=== PATIENT | male | born 1990 | race Caucasian/White ===

== ENCOUNTER 2019-10-19 10:30 | Emergency (ER) | payer SELFPAY ==
[~2019-10-19] VITALS: Ht 177.8 cm; Wt 68.0 kg
[~2019-10-19 10:30] MED LIST: CLARITIN10 MG PO; MEDROL DOSEPAK4 MG PO
[2019-10-19 10:40] VITALS: BP 138/85
[2019-10-19] MEDS ORDERED: PREDNISONE20 M1 PO (10:52)
== END 2019-10-19 11:10 | disposition home or self-care (01) ==
LOC: ED 10:30
DX: L25.9 Unspecified contact dermatitis, unspecified cause (principal); Z87.891 Personal history of nicotine dependence

== ENCOUNTER → 2020-04-09 | Outpatient (CLI) | payer SELFPAY ==
[~2020-04-09] MED LIST changes: +PREDNISONE20 M1 PO
== END | disposition home or self-care (01) ==
LOC: COVID19 02:35
PROVIDERS: ATTEND Internal Medicine
DX: Z20.828 Contact with and (suspected) exposure to other viral communicable diseases (principal)

== ENCOUNTER → 2020-05-20 | Outpatient (CLI) | payer SELFPAY | END | disposition home or self-care (01) | LOC: COVID19 03:10 | PROVIDERS: ATTEND Student in an Organized Health Care Education/Training Program | DX: Z20.828 Contact with and (suspected) exposure to other viral communicable diseases (principal) ==

== ENCOUNTER 2023-04-09 00:22 | Emergency (ER) | payer BC ==
[~2023-04-09] VITALS: Ht 180.3 cm; Wt 70.3 kg
[2023-04-09 00:38] VITALS: BP 127/84
[2023-04-09 01:03] LABS: BASO % 0.4 % (0.0-1.0); EOS # 0.1 10*3/uL (0.0-0.4); EOS % 1.1 % (1.0-4.0); LYMPH # 1.5 10*3/uL (1.3-4.4); LYMPH % 21.9 % (27.0-41.0); MEAN CELL VOLUME 81.2 fl (80.0-94.0); MEAN CORPUSCULAR HGB 27.9 pg (27.0-31.0); MEAN CORPUSCULAR HGB CONC 34.3 g/dl (33.0-37.0); MEAN PLATELET VOLUME 10.6 fl (9.6-12.3); MONO # 0.7 10*3/uL (0.1-1.0); NEUT # 4.6 10*3/uL (2.3-7.9); NEUT % 66.3 % (47.0-73.0); PLATELET COUNT AUTOMATED 309 10*3/uL (130-400); RED BLOOD COUNT 5.42 10*6/uL (4.50-5.90); RED CELL DISTRI WIDTH 12.9 % (0-14.5)
[2023-04-09 01:27] LABS: ALKALINE PHOSPHATASE 60 U/L (46-116); BUN 9 mg/dl (9-23); CHLORIDE 108 mmol/L (98-107); LIPASE 37 U/L (12-53); POTASSIUM 4.7 mmol/L (3.4-5.1); SGPT/ALT 16 U/L (10-49); TOTAL PROTEIN 6.9 gm/dL (6.0-8.0)
[2023-04-09] MEDS ORDERED: OMEPRAZOLE40 MG PO (01:48)
== END 2023-04-09 01:58 | disposition home or self-care (01) ==
LOC: ED 00:22
PROVIDERS: Internal Medicine
DX: K21.9 Gastro-esophageal reflux disease without esophagitis (principal); R07.89 Other chest pain; F17.220 Nicotine dependence, chewing tobacco, uncomplicated

== ENCOUNTER 2023-04-19 18:06 | Emergency (ER) | payer BC ==
[~2023-04-19] VITALS: Wt 71.2 kg
[2023-04-19 18:18] VITALS: BP 136/90
[2023-04-19 19:29] LABS: BASO % 0.6 % (0.0-1.0); EOS # 0.1 10*3/uL (0.0-0.4); LYMPH # 1.5 10*3/uL (1.3-4.4); LYMPH % 20.7 % (27.0-41.0); MEAN CELL VOLUME 80.3 fl (80.0-94.0); MEAN CORPUSCULAR HGB 28.8 pg (27.0-31.0); MEAN CORPUSCULAR HGB CONC 35.9 g/dl (33.0-37.0); MEAN PLATELET VOLUME 10.5 fl (9.6-12.3); MONO # 0.8 10*3/uL (0.1-1.0); MONO % 11.6 % (3.0-9.0); NEUT # 4.6 10*3/uL (2.3-7.9); NEUT % 65.8 % (47.0-73.0); PLATELET COUNT AUTOMATED 312 10*3/uL (130-400); RED BLOOD COUNT 5.48 10*6/uL (4.50-5.90); RED CELL DISTRI WIDTH 12.5 % (0-14.5)
[2023-04-19 19:48] LABS: ALKALINE PHOSPHATASE 62 U/L (46-116); BUN 11 mg/dl (9-23); CHLORIDE 106 mmol/L (98-107); LIPASE 86 U/L (12-53); POTASSIUM 4.2 mmol/L (3.4-5.1); SGPT/ALT 15 U/L (10-49); TOTAL PROTEIN 7.3 gm/dL (6.0-8.0)
== END 2023-04-19 21:22 | disposition home or self-care (01) ==
LOC: ED 18:06
PROVIDERS: Internal Medicine
DX: R10.31 Right lower quadrant pain (principal); R59.1 Generalized enlarged lymph nodes; F17.220 Nicotine dependence, chewing tobacco, uncomplicated

== ENCOUNTER → 2023-04-19 | Outpatient (CLI) | payer BC ==
[~2023-04-19] MED LIST changes: +OMEPRAZOLE40 MG PO
== END | disposition home or self-care (01) ==
LOC: US 08:00
PROVIDERS: ATTEND Internal Medicine
DX: K82.4 Cholesterolosis of gallbladder (principal); K21.9 Gastro-esophageal reflux disease without esophagitis

== ENCOUNTER 2023-11-30 20:19 | Emergency (ER) | payer BC ==
[~2023-11-30] VITALS: Ht 177.8 cm; Wt 74.8 kg
[2023-11-30 20:19] VITALS: BP 110/60
[2023-11-30] MEDS ORDERED: VITAMIN D31250 MC1 PO (20:35)
[2023-11-30] MEDS ORDERED: PROPRANOLOL HCL40 M1 PO (20:35)
[2023-11-30] MEDS ORDERED: ZYRTEC10 M2 PO (20:35)
[2023-11-30] MEDS ORDERED: CELEXA40 MG PO (20:36)
[2023-11-30] MEDS ORDERED: MAXALT10 MG PO (20:37)
[2023-11-30] MEDS ORDERED: Tdap Vaccine 0.5 ML SYR (Adult Vaccine) IM ONE (20:45)
== END 2023-11-30 21:14 | disposition home or self-care (01) ==
LOC: ED 20:19
DX: S61.512A Laceration without foreign body of left wrist, initial encounter (principal); F41.9 Anxiety disorder, unspecified; K21.9 Gastro-esophageal reflux disease without esophagitis; G43.909 Migraine, unspecified, not intractable, without status migrainosus; F17.220 Nicotine dependence, chewing tobacco, uncomplicated; W26.0XXA Contact with knife, initial encounter; Y93.89 Activity, other specified; Y92.009 Unspecified place in unspecified non-institutional (private) residence as the place of occurrence of the external cause; Y99.8 Other external cause status